=== PATIENT | male | born 1985 | race Caucasian/White ===

== ENCOUNTER 2024-12-28 11:04 | Outpatient (OUT) | payer OTHER, SELFPAY ==
--- NOTE | 2024-12-28 11:19 | XR_ITS ---
The [address] [address] Patient Name: YULI SAWYER MRN: [id number] date: 1985 Sex: M Assigned Patient Location: LAB Current Patient Location: LAB Accession/Order Number: [id number] Exam Date: 12/28/2024 11:22 Report Date: 12/28/2024 14:28 At the request of: NANCY JASSO MD Procedure: XR shoulder RT min 2V CLINICAL HISTORY: Chronic worsening right shoulder pain CERVICAL SPINE - 3 views: COMPARISON: None AP, lateral and odontoid views were obtained. There is no acute compression fracture or displacement. Disc space narrowing is seen at C5-6 and C6-7 where there is also endplate spurring. The atlantoaxial relationship is maintained. There is no prevertebral soft tissue swelling. XR/XR shoulder RT min 2V IMPRESSION: MILD DEGENERATIVE CHANGES. RIGHT SHOULDER - 3 views COMPARISON: None AP, Y and Grashey views were obtained. There is no acute fracture or dislocation. There is minor sclerosis at the greater tuberosity. No soft tissue abnormalities are present. IMPRESSION: NO ACUTE BONY FINDINGS. Impression dictated by: Izzy Trevino M.D. 12/28/2024 2:28 PM Dictation Location: [place] [address] Electronically authenticated by: [id number] Y Date: 12/28/2024 14:28
--- NOTE | 2024-12-28 11:19 | XR_ITS ---
The [address] [address] Patient Name: YULI SAWYER MRN: [id number] date: 1985 Sex: M Assigned Patient Location: LAB Current Patient Location: LAB Accession/Order Number: [id number] Exam Date: 12/28/2024 11:22 Report Date: 12/28/2024 14:28 At the request of: NANCY JASSO MD Procedure: XR shoulder RT min 2V CLINICAL HISTORY: Chronic worsening right shoulder pain CERVICAL SPINE - 3 views: COMPARISON: None AP, lateral and odontoid views were obtained. There is no acute compression fracture or displacement. Disc space narrowing is seen at C5-6 and C6-7 where there is also endplate spurring. The atlantoaxial relationship is maintained. There is no prevertebral soft tissue swelling. XR/XR cervical spine 2-3V IMPRESSION: MILD DEGENERATIVE CHANGES. RIGHT SHOULDER - 3 views COMPARISON: None AP, Y and Grashey views were obtained. There is no acute fracture or dislocation. There is minor sclerosis at the greater tuberosity. No soft tissue abnormalities are present. IMPRESSION: NO ACUTE BONY FINDINGS. Impression dictated by: Izzy Trevino M.D. 12/28/2024 2:28 PM Dictation Location: [place] [address] Electronically authenticated by: [id number] Y Date: 12/28/2024 14:28
[2024-12-28 12:06] LABS: Alanine Aminotransferase 28 U/L (16-63); Albumin Globulin Ratio 1.1; Albumin Level 4.1 g/dL (3.4-5.0); Alkaline Phosphatase 70 U/L (46-116); Anion Gap 10.9; Aspartate Amino Transferase 16 U/L (15-37); Blood Urea Nitrogen 13.0 mg/dL (7.0-18.0); Calcium 9.4 mg/dL (8.5-10.1); Carbon Dioxide 28.7 mmol/L (21.0-32.0); Chloride 105 mmol/L (98-107); Cholesterol 212 mg/dL (<=200); Estimated GFR (African America >60 (>=60 mL/min/1.73m^2); Estimated GFR (Non-African Ame >60 (>=60 mL/min/1.73m^2); Globulin 3.6 g/dL; Glucose 94 mg/dL (74-106); HDL Cholesterol 44 mg/dL (40-60); Potassium 4.6 mmol/L (3.5-5.1); Sodium 140 mmol/L (136-145); Total Protein 7.7 g/dL (6.4-8.2); Triglycerides 103 mg/dL (<=150); VLDL CHOLESTEROL 20.6 mg/dL
[2024-12-28 12:11] LABS: Hematocrit 43.8 % (42.0-54.0); Hemoglobin 15.3 g/dL (14.0-18.0); Immature Granulocytes Abs Auto 0.02 10^3/uL (0.00-0.03); Immature Granulocytes Pct Auto 0.2 % (0.0-0.5); Lymphocytes Absolute Auto 2.1 10^3/uL (1.2-3.8); Mean Corpuscular HGB Conc 34.9 g/dL (29.9-35.2); Mean Corpuscular Hemoglobin 32.0 pg (25.9-34.0); Mean Corpuscular Volume 91.6 fL (80.0-94.0); Platelet Count 335 10^3/uL (150-450); Red Blood Count 4.78 10^6/uL (4.70-6.10); White Blood Count 8.8 10^3/uL (4.0-11.0)
== END 2024-12-28 11:05 | disposition home or self-care (01) ==
LOC: LAB 11:08
PROVIDERS: PCP Family Medicine; Visit Provider Family Medicine
DX: Z00.00 Encounter for general adult medical examination without abnormal findings (principal); Z12.5 Encounter for screening for malignant neoplasm of prostate; M54.12 Radiculopathy, cervical region; M50.30 Other cervical disc degeneration, unspecified cervical region
CPT/HCPCS: 36415; 72040; 73030; 80053; 80061; 83036; 85025; G0103